=== PATIENT | male | born 1960 | race Caucasian/White ===

== ENCOUNTER 2025-08-03 16:15 | Day surgery (SDC) | payer MEDICARE ==
[2025-08-03] MEDS ORDERED: LIDOCAINE HCL 1% 50 MG/5 ML VL IJ ONE (16:16)
[2025-08-03] MEDS ORDERED: methylPREDNISolone acetate IM ONE (16:16)
[2025-08-03] MEDS ORDERED: BUPIVACAINE 0.5% VIAL IJ ONE (16:16)
--- NOTE | 2025-08-04 08:45 | XRAY ---
Indication: Left knee injection. Intraoperative fluoroscopy provided for 5 seconds. Single digital spot image submitted for interpretation demonstrates needle tip projecting over left femur intercondylar notch. Small amount of contrast injected for needle tip placement. Correlate with intraoperative findings/report.
--- NOTE | 2025-08-04 09:35 | XRAY ---
5 seconds of fluoroscopy was used in surgery for a left intra-articular knee injection.
== END 2025-08-03 19:20 | disposition home or self-care (01) ==
LOC: SDC-PAIN 16:15
PROVIDERS: ATTEND Psychiatry & Neurology Pain Medicine
DX: M17.12 Unilateral primary osteoarthritis, left knee (principal)